=== PATIENT | female | born 1950 | race Caucasian/White ===

== ENCOUNTER → 2016-08-08 | Outpatient (CLI) | payer MEDICARE, BC ==
[~2016-08-08] MED LIST: "\\\"PREP SPRAY\\\"-TIN4 OZ"; ASPIR-TRIN325 MG PO; CALCIUM 600 +1 EACH PO; CHROMIUM PICO200 MC1 PO; DICLOFENAC SOD100 MG PO; ELAVIL25 MG PO; FISH OIL1000 MG; FOSAMAX70 MG PO; HUMULIN R100 UNIT/1 SUB-Q; LISINOPRIL40 MG PO; MAG-OX-400(241400 MG PO; MEGA BIOTIN10000 MCG PO; NORVASC2.5 MG PO; NOVOLIN-R100 UNIT/M; POTASSIUM GLU2.5 MEQ PO; PROBIOTIC1 EAC1 PO; SYNTHROID100 MCG PO; TYLENOL/COD#31 TAB PO; VITAMIN B12-FO1 EACH PO; VITAMIN D1000 UNIT PO; [UNRECOGNIZED DRUG - OTHER] PO
== END | disposition disaster alternative care site (69) ==
LOC: GRAD 12:06
DX: N20.2 Calculus of kidney with calculus of ureter (principal); Z96.0 Presence of urogenital implants